=== PATIENT | male | born 1995 | race Caucasian/White ===

== ENCOUNTER 2019-07-01 18:25 | Emergency (ER) | payer BC ==
[~2019-07-01] VITALS: Ht 182.9 cm; Wt 140.0 kg
[2019-07-01 19:10] VITALS: BP 152/89
--- NOTE | 2019-07-01 19:40 | PHYS DOC ---
Past Medical History Past Medical History: No Pertinent History Past Surgical History: Tonsillectomy Alcohol Use: None Adult General Chief Complaint Chief Complaint: LOWER EXT PAIN HPI HPI Patient is a 23 year old male who presents with tingling to the feet with numbness that begun this morning. Denies any injuries. Reports symptoms are worse when ambulating. Denies any hx of DM, or any vascular disease Review of Systems Review of Systems Constitutional: Denies fever or chills [] GI: Denies abdominal pain, nausea, vomiting, bloody stools or diarrhea [] : Denies dysuria or hematuria [] Musculoskeletal: Reports tingling to bilateral lower extremities and numbness Integument: Denies rash or skin lesions [] Neurologic: Denies headache, focal weakness or sensory changes [] All other systems were reviewed and found to be within normal limits, except as documented in this note. Allergies Allergies Allergies Coded Allergies Type Severity Reaction Last Updated Verified No Known Drug Allergies 07/01/19 No Physical Exam Physical Exam Constitutional: Well developed, well nourished, no acute distress, non-toxic appearance. [] Skin: Warm, dry, no erythema, no rash. [] Back: No tenderness, no CVA tenderness. [] Extremities: Bilateral feet with no arch. No tenderness, no cyanosis, no clubbing, ROM intact, no edema. +2 bilateral pedal pulses. Neurologic: Alert and oriented X 3, normal motor function, normal sensory function, no focal deficits noted. [] Psychologic: Affect normal, judgement normal, mood normal. [] Current Patient Data Vital Signs Vital Signs Date Time Temp Pulse Resp B/P (MAP) Pulse Ox O2 Delivery O2 Flow Rate FiO2 07/01/19 19:10 98.0 52 18 152/89 (110) 99 Room Air 98.0 EKG EKG [] Radiology/Procedures Radiology/Procedures [] Course & Med Decision Making Course & Med Decision Making Pertinent Labs and Imaging studies reviewed. (See chart for details) This is a 23-year-old male patient presented to the ED today complaining of tingling and numbness to bilateral feet that began this morning, no known injury. No history of PVD, diabetes or any other vascular diseases. Recommended plantar fasciitis management including buying new shoes with better insoles provided instructions to follow-up with filter tip catcher. OTC pain relievers. Dragon Disclaimer Dragon Disclaimer This electronic medical record was generated, in whole or in part, using a voice recognition dictation system. Departure Departure Impression: Primary Impression: Tingling of both feet Additional Impressions: Numbness in feet Plantar fasciitis of right foot Plantar fasciitis of left foot Disposition: 01 HOME, SELF-CARE Condition: STABLE Referrals: CARTER URIBE APRN (PCP) follow up next week KHALIDA RICHMOND DPM follow up next week Patient Instructions: Plantar Fasciitis (Heel Spur Syndrome) with Rehab- [facility] Additional Instructions: You were evaluated in the emergency room for tingling and numbness to your feet. Please consider getting shoes with better insoles, consider exercise and weight loss. Follow-up with the provided filter tip catcher or your own doctor. Please take [id number] pain relievers as needed. Problem Qualifiers JOHN HERNANDEZ APRN Jul 01, 2019 19:40
== END 2019-07-01 19:50 | disposition home or self-care (01) ==
LOC: ER 18:25
DX: M72.2 Plantar fascial fibromatosis (principal); R20.2 Paresthesia of skin; R20.0 Anesthesia of skin; Z90.89 Acquired absence of other organs
CPT/HCPCS: 99281